=== PATIENT | female | born 1960 | race Caucasian/White ===

== ENCOUNTER 2016-08-08 | Emergency (ER) | payer BC ==
--- NOTE | 2016-08-08 12:47 | ED ---
Skin/Abscess/FB HPI - General Chief complaint: Skin/Abscess/Foreign Body Stated complaint: shingles Time Seen by Provider: 08/08/16 12:16 Source: patient, RN notes reviewed Mode of arrival: ambulatory Limitations: no limitations - History of Present Illness Initial comments: 55-year-old female presents to the emergency department with a chief complaint of shingles. Patient started to have a rash yesterday she went to urgent care and was seen. They diagnosed her was also started her on medications and sent her home. Patient states they told her that she follow-up the next day for reevaluation. Patient states she try to see her doctor. Unable to get her in so she came here to be reevaluated. Patient states she is having some pain. Patient has ptosis blistering along the bottom of the right cheek and into the mouth which is the same distribution it was yesterday just a few more blisters. Patient denies any eye pain patient as he pushes on the ice of the nose. Patient states just here for a recheck and she was worried that possibly she could have something more for the pain. Patient at this time is denying any other symptoms. Patient denies any recent fever, chills, shortness of breath, chest pain, back pain, abdominal pain, nausea vomiting, numbness or tingling, dysuria or hematuria, constipation or diarrhea, headaches or visual changes, or any other current symptoms. - Related Data Home Medications Medication Instructions Recorded Confirmed Cephalexin [Keflex] 500 mg PO Q8H 08/08/16 08/08/16 Nexnovdi-Azjzejeka-Yf Otic 4 drops BOTH EARS TID 08/08/16 08/08/16 [Cortisporin Otic Soln] valACYclovir HCL [Valtrex] 1,000 mg PO Q8H 08/08/16 08/08/16 Previous Rx's Medication Instructions Recorded Hydrocodone/Acetaminophen [Ghent 1 each PO Q6HR PRN #20 tab 08/08/16 5-325] Allergies Allergy/AdvReac Type Severity Reaction Status Date / Time aspirin Allergy Unknown Verified 08/08/16 12:36 Review of Systems ROS Statement: Those systems with pertinent positive or pertinent negative responses have been documented in the HPI. ROS Other: All systems not noted in ROS Statement are negative. Past Medical History Past Medical History: No Reported History Additional Past Medical History / Comment(s): SYNCOPE History of Any Multi-Drug Resistant Organisms: None Reported Past Surgical History: Ablation, Cholecystectomy, Hysterectomy, Tubal Ligation Additional Past Surgical History / Comment(s): ALEXIASURE Past Psychological History: No Psychological Hx Reported Smoking Status: Never smoker Past Alcohol Use History: Occasional Past Drug Use History: None Reported General Exam Limitations: no limitations General appearance: alert, in no apparent distress Head exam: Present: atraumatic, normocephalic, normal inspection ENT exam: Present: normal exam, mucous membranes moist Neck exam: Present: normal inspection. Absent: tenderness, meningismus, lymphadenopathy Respiratory exam: Present: normal lung sounds bilaterally. Absent: respiratory distress, wheezes, rales, rhonchi, stridor Cardiovascular Exam: Present: regular rate, normal rhythm, normal heart sounds. Absent: systolic murmur, diastolic murmur, rubs, gallop, clicks Neurological exam: Present: alert, oriented X3, CN II-XII intact. Absent: motor sensory deficit Psychiatric exam: Present: normal affect, normal mood Skin exam: Present: warm, dry, intact, rash (Patient appears to have a vesicular rash that involves the right ear and along the jawline into the right aspect of the mouth. There is blistering with some drainage.) Course Vital Signs 08/08/16 12:26 Temperature 98.1 F Pulse Rate 93 Respiratory 16 Rate Blood Pressure 118/72 O2 Sat by Pulse 96 Oximetry Medical Decision Making - Medical Decision Making 55-year-old female presents emergency department chief complaint of shingles. At this time we discussed that it is no mandibular distribution. There does not appear to be any eye involvement there is no blistering on the eye now tearing. We did discuss to be concerned and went to follow-up. We did discuss return parameters. We will start patient on some narcosis with pain control. We discussed all of her questions. She stated that she understood. This time she will be discharged home. Disposition Clinical Impression: Herpes zoster Disposition: HOME SELF-CARE Condition: Stable Instructions: Shingles (ED) Additional Instructions: Please use medication as discussed. Please follow up with family doctor if symptoms have not improved over the next two days. Please return to the emergency room if your symptoms increase or worsen or for any other concerns. Prescriptions: Hydrocodone/Acetaminophen [Ghent 5-325] 1 each PO Q6HR PRN #20 tab PRN Reason: Pain Referrals: Cesario Wang MD [Primary Care Provider] - 1-2 days Time of Disposition: 12:46
== END 2016-08-08 12:55 | disposition home or self-care (01) ==
CPT/HCPCS: 99283

== ENCOUNTER → 2018-05-03 | Outpatient (CLI) | payer BC ==
--- NOTE | 2018-05-06 13:27 | MM ---
Reason for exam: screening (asymptomatic). Last mammogram was performed 3 years and 1 month ago. History: Patient is postmenopausal. Physical Findings: A clinical breast exam by your physician is recommended on an annual basis and results should be correlated with mammographic findings. MG Screening Mammo w CAD Bilateral CC and MLO view(s) were taken. Prior study comparison: April 13, 2015, mammogram, performed at [facility]. January 14, 2014, mammogram, performed at [facility]. There are scattered fibroglandular densities. No significant changes when compared with prior studies. ASSESSMENT: Benign, BI-RAD 2 RECOMMENDATION: Routine screening mammogram of both breasts in 1 year.
--- NOTE | 2018-05-14 06:49 | BD ---
EXAMINATION TYPE: Axial Bone Density DATE OF EXAM: 05/03/2018 COMPARISON: NONE CLINICAL HISTORY: Height: 5 FT 1 IN Weight: 164 FRAX RISK QUESTIONS: History of Fracture in Adulthood: YES Secondary Osteoporosis: RISK FACTORS HISTORY OF: Active: YES Postmenopausal woman: TOTAL HYST AGE 54 MEDICATIONS: Additional Medications: NONE Additional History: EXAM MEASUREMENTS: Bone mineral densitometry was performed using the [employer] System. Bone mineral density as measured about the Lumbar spine is: ----- L1-L4(G/cm2): 1.099 T Score Values are as follows: ----- L2: -0.3 ----- L3: -0.4 ----- L4: -1.0 ----- L1-L4: -0.7 BASELINE Bone mineral density about the R hip (g/cm2): 0.859 Bone mineral density about the L hip (g/cm2): 0.850 T Score values are as follows: -----R Neck: -1.3 -----L Neck: -1.4 -----R Total: -0.7 -----L Total: -0.8 BASELINE IMPRESSION: Osteopenia (T Score between -2.5 and -1) at femoral neck level in both hips. There is slightly increased risk of fracture and the patient may be considered for treatment. Re-Screen 2-5 years. NOTE: T-SCORE=SD OF THE YOUNG ADULT MEAN.
== END | disposition home or self-care (01) ==
LOC: RADBDWWP 12:41
PROVIDERS: ATTEND Internal Medicine Geriatric Medicine
DX: Z12.31 Encounter for screening mammogram for malignant neoplasm of breast (principal); M85.852 Other specified disorders of bone density and structure, left thigh; M85.851 Other specified disorders of bone density and structure, right thigh
CPT/HCPCS: 77067; 77080

== ENCOUNTER → 2018-08-30 | Outpatient (CLI) | payer OTHER ==
--- NOTE | 2018-08-30 15:41 | XR ---
Right foot HISTORY: Plantar fasciitis, metatarsal pain 3 views of the right foot There is degenerative change at the first metatarsophalangeal joint. Alignment, bone mineralization i s maintained. No fracture or dislocation. There is a plantar calcaneal spur present. IMPRESSION: Plantar calcaneus spur, osteoarthritis.
== END ==
LOC: RADXRMAIN 10:14
PROVIDERS: ATTEND Internal Medicine Geriatric Medicine
DX: M77.31 Calcaneal spur, right foot (principal); M19.071 Primary osteoarthritis, right ankle and foot

== ENCOUNTER → 2019-04-02 | Outpatient (CLI) | payer OTHER ==
--- NOTE | 2019-04-02 10:11 | XR ---
EXAMINATION TYPE: XR thoracic spine complete DATE OF EXAM: 04/02/2019 COMPARISON: NONE HISTORY: Back pain Alignment is anatomic. There is no compression deformities. Slight curvature of the spine. Surgical clips in the gallbladder fossa. Hypertrophic and degenerative changes. IMPRESSION: 1. Moderate multilevel degenerative disc disease.
== END | disposition home or self-care (01) ==
LOC: RADXRMAIN 09:46
PROVIDERS: ATTEND Internal Medicine Geriatric Medicine
DX: M51.34 Other intervertebral disc degeneration, thoracic region (principal)
CPT/HCPCS: 72072

== ENCOUNTER → 2019-05-05 | Outpatient (CLI) | payer OTHER ==
--- NOTE | 2019-05-07 10:33 | MM ---
Reason for exam: screening (asymptomatic). Last mammogram was performed 1 year ago. History: Patient is postmenopausal. Physical Findings: A clinical breast exam by your physician is recommended on an annual basis and results should be correlated with mammographic findings. MG Screening Mammo w CAD Bilateral CC and MLO view(s) were taken. Prior study comparison: May 03, 2018, bilateral MG screening mammo w CAD. April 13, 2015, mammogram, performed at [facility]. There are scattered fibroglandular densities. No significant changes when compared with prior studies. ASSESSMENT: Benign, BI-RAD 2 RECOMMENDATION: Routine screening mammogram of both breasts in 1 year.
== END | disposition home or self-care (01) ==
LOC: RADMAMWWP 15:15
PROVIDERS: ATTEND Internal Medicine Geriatric Medicine
DX: Z12.31 Encounter for screening mammogram for malignant neoplasm of breast (principal)
CPT/HCPCS: 77067

== ENCOUNTER → 2021-03-09 | Outpatient (CLI) | payer OTHER ==
--- NOTE | 2021-03-14 13:43 | MM ---
Reason for exam: screening (asymptomatic). Last mammogram was performed 1 year and 10 months ago. History: Patient is postmenopausal. Family history of breast cancer in maternal aunt at age 40. Physical Findings: A clinical breast exam by your physician is recommended on an annual basis and results should be correlated with mammographic findings. MG 3D Screening Mammo W/Cad Bilateral CC and MLO view(s) were taken. Prior study comparison: May 05, 2019, bilateral MG screening mammo w CAD. May 03, 2018, bilateral MG screening mammo w CAD. There are scattered fibroglandular densities. There are benign appearing round calcifications bilaterally. There is chronic nodularity in the right outer breast. Asymmetric breast tissue left upper quadrant. There is no discrete abnormality. ASSESSMENT: Benign, BI-RAD 2 RECOMMENDATION: Routine screening mammogram of both breasts in 1 year.
== END | disposition home or self-care (01) ==
LOC: RADMAMWWP 15:49
PROVIDERS: ATTEND Internal Medicine Geriatric Medicine
DX: Z12.31 Encounter for screening mammogram for malignant neoplasm of breast (principal); Z78.0 Asymptomatic menopausal state; Z80.3 Family history of malignant neoplasm of breast
CPT/HCPCS: 77063; 77067

== ENCOUNTER 2023-06-07 03:10 | Observation (INO) | payer OTHER ==
[2023-06-07] MEDS ORDERED: METOCLOPRAMIDE 5 MG/ML 2 ML VIAL IVP STA (03:55)
--- NOTE | 2023-06-07 04:00 | ED ---
General Adult HPI - General Source: patient, family Mode of arrival: wheelchair Limitations: no limitations <Ravi Knowles - Last Filed: 06/07/23 08:08> <Andres Solis - Last Filed: 06/07/23 14:46> - General Chief complaint: Dizziness Stated complaint: Vomitting,dizziness Time Seen by Provider: 06/07/23 03:26 - History of Present Illness Initial comments: Dictation was produced using [employer] dictation software. please excuse any grammatical, word or spelling errors. Chief Complaint: 62-year-old female presents with vertigo History of Present Illness: Patient is a 62-year-old female presents emergency Department with vertigo. Patient states she had her initial episode yesterday lasted briefly and she woke up from bed while turning her head. Last for several minutes however resolved. This morning she woke up and went from laying to sitting and all of a sudden had intense vertigo that was described as severe. She did have some nausea and vomiting. States that it seems to be worse and she turns her head certain positions or goes from laying to sitting. Patient has any history of stroke. Denies any headache. No numb singly paresthesias to the arms or legs. The ROS documented in this emergency department record has been reviewed and confirmed by me. Those systems with pertinent positive or negative responses have been documented in the HPI. All other systems are other negative and/or noncontributory. (Ravi Knowles) - Related Data Home Medications Medication Instructions Recorded Confirmed No Known Home Medications 06/07/23 06/07/23 Allergies Allergy/AdvReac Type Severity Reaction Status Date / Time aspirin Allergy Unknown Verified 06/07/23 10:26 orange Allergy Rash/Hives Verified 06/07/23 10:26 tomato Allergy Rash/Hives Verified 06/07/23 10:26 Review of Systems ROS Other: All systems not noted in ROS Statement are negative. <Ravi Knowles - Last Filed: 06/07/23 08:08> ROS Other: All systems not noted in ROS Statement are negative. <Andres Solis - Last Filed: 06/07/23 14:46> ROS Statement: Those systems with pertinent positive or pertinent negative responses have been documented in the HPI. Past Medical History Past Medical History: No Reported History Additional Past Medical History / Comment(s): SYNCOPE History of Any Multi-Drug Resistant Organisms: None Reported Past Surgical History: Ablation, Cholecystectomy, Hysterectomy, Tubal Ligation Additional Past Surgical History / Comment(s): NOVASURE Past Psychological History: No Psychological Hx Reported Smoking Status: Never smoker Past Alcohol Use History: Occasional Past Drug Use History: None Reported <Ravi Knowles - Last Filed: 06/07/23 08:08> General Exam Limitations: no limitations <Ravi Knowles - Last Filed: 06/07/23 08:08> - General Exam Comments Initial Comments: PHYSICAL EXAM: General Impression: Alert and oriented x3, acute distress secondary to nausea HEENT: Normocephalic atraumatic, extra-ocular movements intact, pupils equal and reactive to light bilaterally, mucous membranes moist. Cardiovascular: Heart regular rate and rhythm Chest: Able to complete full sentences, no retractions, no tachypnea Abdomen: abdomen soft, non-tender, non-distended, no organomegaly Musculoskeletal: Pulses present and equal in all extremities, no peripheral edema Motor: no focal deficits noted Neurological: CN II-XII grossly intact, no focal motor or sensory deficits noted, persistent nystagmus, elicited with rightward gaze fast phase to the right Skin: Intact with no visualized rashes Psych: Normal affect and mood (Ravi Knowles) Course Vital Signs 06/07/23 06/07/23 06/07/23 03:13 04:17 05:12 Temperature 97.7 F Pulse Rate 97 89 82 Pulse Rate [ Sitting] Pulse Rate [ Standing] Pulse Rate [ Supine] Respiratory 18 20 18 Rate Blood Pressure 132/68 121/105 115/80 Blood Pressure [Sitting] Blood Pressure [Standing] Blood Pressure [Supine] O2 Sat by Pulse 99 100 100 Oximetry 06/07/23 06/07/23 06/07/23 06:24 07:30 08:59 Temperature 97.9 F Pulse Rate 77 73 76 Pulse Rate [ Sitting] Pulse Rate [ Standing] Pulse Rate [ Supine] Respiratory 18 20 18 Rate Blood Pressure 131/80 141/74 117/65 Blood Pressure [Sitting] Blood Pressure [Standing] Blood Pressure [Supine] O2 Sat by Pulse 99 98 97 Oximetry 06/07/23 06/07/23 09:25 13:09 Temperature Pulse Rate 84 Pulse Rate [ 74 Sitting] Pulse Rate [ 76 Standing] Pulse Rate [ 68 Supine] Respiratory 14 Rate Blood Pressure 111/75 Blood Pressure 108/74 [Sitting] Blood Pressure 108/75 [Standing] Blood Pressure 107/63 [Supine] O2 Sat by Pulse 98 Oximetry EKG Findings - EKG Comments: EKG Findings:: My EKG interpretation: Ventricular rate 70, sinus rhythm,. Interval 157, QRS 91, QTc 413. No CO prolongation, no QTC prolongation, no ST or T-wave changes noted. Overall, this EKG is unremarkable <Ravi Knowles - Last Filed: 06/07/23 08:08> Medical Decision Making - Lab Data Result diagrams: 06/07/23 04:15 06/07/23 04:15 <Ravi Knowles - Last Filed: 06/07/23 08:08> - Lab Data Result diagrams: 06/07/23 04:15 06/07/23 04:15 <Andres Solis - Last Filed: 06/07/23 14:46> - Medical Decision Making Was pt. sent in by a medical professional or institution (, PA, BRAKE REPAIRER RAILROAD, urgent care, hospital, or correction...) When possible be specific @ -No Did you speak to anyone other than the patient for history (EMS, parent, family, police, friend...)? What history was obtained from this source @ -No Did you review nursing and triage notes (agree or disagree)? Why? @ -I reviewed and agree with nursing and triage notes Were old charts reviewed (outside hosp., previous admission, EMS record, old EKG, old radiological studies, urgent care reports/EKG's, correction records)? Report findings @ -No old charts were reviewed Differential Diagnosis (chest pain, altered mental status, abdominal pain women, abdominal pain men, vaginal bleeding, musculoskeletal, weakness, fever, dyspnea, syncope, headache, dizziness, GI bleed, back pain, seizure, CVA, palpatations, mental health)? @ -Differential Dizziness: Benign paroxysmal positional Vertigo, Menieres disease, otitis media, acoustic neuroma, vertebrobasilar insufficiency, cerebellar stroke, encephalitis, hypovolemic, arrhythmia, coronary artery syndrome, anemia, this is not meant to be an all-inclusive list EKG interpreted by me (3pts min.). @ -as above X-rays interpreted by me (1pt min.). @ -chest X-ray shows no acute processes. CT interpreted by me (1pt min.). @ -Computed tomography scan of the brain is negative for acute bleed or obvious mass U/S interpreted by me (1pt. min.). @ -None done What testing was considered but not performed or refused? (CT, X-rays, U/S, labs)? Why? @ -None What meds were considered but not given or refused? Why? @ -None Did you discuss the management of the patient with other professionals (professionals i.e. , PA, BRAKE REPAIRER RAILROAD, lab, RT, psych nurse, social insurance administrator, deflash and wash operator, teacher, global safety officer, test case developer)? Give summary @ -No Was smoking cessation discussed for >3mins.? @ -No Was critical care preformed (if so, how long)? @ -No Were there social determinants of health that impacted care today? How? (Homelessness, low income, unemployed, alcoholism, drug addiction, transportation, low edu. Level, literacy, decrease access to med. care, custodial, rehab)? @ -No Was there de-escalation of care discussed even if they declined (Discuss DNR or withdrawal of care, Hospice)? DNR status @ -No What co-morbidities impacted this encounter? (DM, HTN, Smoking, COPD, CAD, Canc er, CVA, ARF, Chemo, Hep., AIDS, mental health diagnosis, sleep apnea, morbid obesity)? @ -None Was patient admitted / discharged? Hospital course, mention meds given and route, prescriptions, significant lab abnormalities, going to OR and other pertinent info. @ -62 Year-old female presents emergency department for severe vertigo. Vital signs are stable. EKG is unremarkable. Labs are negative. CT brain did not show any obvious cause of vertigo. Given the patient's degree of symptoms or suspicion for INSPECTOR TECHNICIAN cause for vertigo. CT angio head and neck pending. Patient is sent out to Dr. Solis at 8:00 AM Undiagnosed new problem with uncertain prognosis? @ -No Drug Therapy requiring intensive monitoring for toxicity (Heparin, Nitro, Insulin, Cardizem)? @ -No Were any procedures done? @ -No Diagnosis/symptom? Acute, or Chronic, or Acute on Chronic? Uncomplicated (without systemic symptoms) or Complicated (systemic symptoms)? @ -vertigo Side effects of treatment? @ -No Exacerbation, Progression, or Severe Exacerbation? @ -No Poses a threat to life or bodily function? How? (Chest pain, [place], [place], pneumonia, PE, COPD, DKA, ARF, appy, cholecystitis, CVA, Diverticulitis, Homicidal, Suicidal, threat to staff... and all critical care pts) @ -yes (Ravi Knowles) Patient is a 62-year-old female who presents emergency department for vertigo. Signed out to me by previous physician. New-onset vertigo pending results of CT imaging. Patient's workup so far is unremarkable. There is long delay in obtaining CT imaging as they were having issues with results crossing over and the radiologist during the films. When they were finally read it, and interpreted by myself, revealed no obvious acute intracranial process or injury. I did the patient. She is still having vertigo. Patient will be admitted to the hospital at this time. She was in agreement this plan. Neuro will be consulted. I spoke with the admitting team, Dr. Morrison of [facility] accept the admission. Diagnosis/symptom? @ -Vertigo of unknown etiology Acute, or Chronic, or Acute on Chronic? @ -Acute Uncomplicated (without systemic symptoms) or Complicated (systemic symptoms)? @ -Complicated Side effects of treatment? @ -none Exacerbation, Progression, or Severe Exacerbation] @ -no Poses a threat to life or bodily function? @ -Possibly, yes. (Andres Solis) - Lab Data Lab Results 06/07/23 06/07/23 06/07/23 Range/Units 04:15 04:15 04:15 WBC 12.1 H (3.8-10.6) k/uL RBC 4.17 (3.80-5.40) m/uL Hgb 13.3 (11.4-16.0) gm/dL Hct 39.7 (34.0-46.0) % MCV 95.0 (80.0-100.0) fL MCH 31.9 (25.0-35.0) pg MCHC 33.6 (31.0-37.0) g/dL RDW 12.2 (11.5-15.5) % Plt Count 301 (150-450) k/uL MPV 8.4 Neutrophils % 65 % Lymphocytes % 27 % Monocytes % 3 % Eosinophils % 2 % Basophils % 1 % Neutrophils # 7.8 H (1.3-7.7) k/uL Lymphocytes # 3.3 (1.0-4.8) k/uL Monocytes # 0.4 (0-1.0) k/uL Eosinophils # 0.3 (0-0.7) k/uL Basophils # 0.1 (0-0.2) k/uL PT 10.1 (10.0-12.5) sec INR 0.9 (<1.2) APTT 21.9 L (22.0-30.0) sec Sodium 140 (137-145) mmol/L Potassium 4.0 (3.5-5.1) mmol/L Chloride 104 (98-107) mmol/L Carbon Dioxide 22 (22-30) mmol/L Anion Gap 14 mmol/L BUN 20 H (7-17) mg/dL Creatinine 0.76 (0.52-1.04) mg/dL Est GFR (CKD-EPI)AfAm >90 (>60 ml/min/1.73 sqM) Est GFR (CKD-EPI)NonAf 86 (>60 ml/min/1.73 sqM) Glucose 127 H (74-99) mg/dL Calcium 9.6 (8.4-10.2) mg/dL Total Bilirubin 0.3 (0.2-1.3) mg/dL AST 29 (14-36) U/L ALT 29 (4-34) U/L Alkaline Phosphatase 119 (38-126) U/L Creatine Kinase 53 (30-135) U/L Troponin I (0.000-0.034) ng/mL Total Protein 6.8 (6.3-8.2) g/dL Albumin 4.2 (3.5-5.0) g/dL 06/07/23 Range/Units 04:15 WBC (3.8-10.6) k/uL RBC (3.80-5.40) m/uL Hgb (11.4-16.0) gm/dL Hct (34.0-46.0) % MCV (80.0-100.0) fL MCH (25.0-35.0) pg MCHC (31.0-37.0) g/dL RDW (11.5-15.5) % Plt Count (150-450) k/uL MPV Neutrophils % % Lymphocytes % % Monocytes % % Eosinophils % % Basophils % % Neutrophils # (1.3-7.7) k/uL Lymphocytes # (1.0-4.8) k/uL Monocytes # (0-1.0) k/uL Eosinophils # (0-0.7) k/uL Basophils # (0-0.2) k/uL PT (10.0-12.5) sec INR (<1.2) APTT (22.0-30.0) sec Sodium (137-145) mmol/L Potassium (3.5-5.1) mmol/L Chloride (98-107) mmol/L Carbon Dioxide (22-30) mmol/L Anion Gap mmol/L BUN (7-17) mg/dL Creatinine (0.52-1.04) mg/dL Est GFR (CKD-EPI)AfAm (>60 ml/min/1.73 sqM) Est GFR (CKD-EPI)NonAf (>60 ml/min/1.73 sqM) Glucose (74-99) mg/dL Calcium (8.4-10.2) mg/dL Total Bilirubin (0.2-1.3) mg/dL AST (14-36) U/L ALT (4-34) U/L Alkaline Phosphatase (38-126) U/L Creatine Kinase (30-135) U/L Troponin I <0.012 (0.000-0.034) ng/mL Total Protein (6.3-8.2) g/dL Albumin (3.5-5.0) g/dL Disposition <Ravi Knowles - Last Filed: 06/07/23 08:08> Time of Disposition: 11:15 <Andres Solis - Last Filed: 06/07/23 14:46> Clinical Impression: Vertigo Disposition: ADMITTED IP TO THIS HOSP Condition: Stable
[2023-06-07 05:49] LABS: Basophils # (A) 0.1 k/uL (0-0.2); Basophils % (A) 1 %; Eosinophils # (A) 0.3 k/uL (0-0.7); Eosinophils % (A) 2 %; HCT 39.7 % (34.0-46.0); HGB 13.3 gm/dL (11.4-16.0); Lymphocytes # (A) 3.3 k/uL (1.0-4.8); Lymphocytes % (A) 27 %; MCH 31.9 pg (25.0-35.0); MCHC 33.6 g/dL (31.0-37.0); Mean Platelet Volume 8.4; Monocytes # (A) 0.4 k/uL (0-1.0); Monocytes % (A) 3 %; Neutrophils # (A) 7.8 k/uL (1.3-7.7); Neutrophils % (A) 65 %; Platelet Count 301 k/uL (150-450); RBC 4.17 m/uL (3.80-5.40); RDW 12.2 % (11.5-15.5); WBC 12.1 k/uL (3.8-10.6)
[2023-06-07 05:59] LABS: ALT 29 U/L (4-34); AST 29 U/L (14-36); African American GFR (CKD) >90 (>60 ml/min/1.73 sqM); Albumin 4.2 g/dL (3.5-5.0); Alkaline Phosphatase 119 U/L (38-126); Anion Gap 14 mmol/L; Blood Urea Nitrogen 20 mg/dL (7-17); Calcium 9.6 mg/dL (8.4-10.2); Carbon Dioxide 22 mmol/L (22-30); Chloride 104 mmol/L (98-107); Creatine Kinase 53 U/L (30-135); Glucose 127 mg/dL (74-99); Non-African American GFR(CKD) 86 (>60 ml/min/1.73 sqM); Sodium 140 mmol/L (137-145); Total Bilirubin 0.3 mg/dL (0.2-1.3); Total Protein 6.8 g/dL (6.3-8.2)
[2023-06-07 06:14] LABS: INR 0.9 (<1.2); Partial Thromboplastin Time 21.9 sec (22.0-30.0); Prothrombin Time 10.1 sec (10.0-12.5)
--- NOTE | 2023-06-07 06:56 | XR ---
EXAM: XR Chest, 2 Views CLINICAL HISTORY: ITS.REASON XR Reason: altered mental status TECHNIQUE: Frontal and lateral views of the chest. COMPARISON: No relevant prior studies available. FINDINGS: Lungs: Unremarkable. No consolidation. Pleural space: Unremarkable. No pneumothorax. Heart: Unremarkable. No cardiomegaly. Mediastinum: Unremarkable. Bones/joints: Unremarkable. IMPRESSION: No evidence of acute cardiopulmonary disease.
[2023-06-07 07:41] VITALS: TEMP 97.9
[2023-06-07] MEDS ORDERED: MECLIZINE 12.5 MG TAB PO STA (09:07)
--- NOTE | 2023-06-07 09:54 | CT ---
EXAMINATION TYPE: CT brain wo con CT DLP: 12/24/2012 mGycm, Automated exposure control for dose reduction was used. DATE OF EXAM: 06/07/2023 5:37 AM COMPARISON: 12/24/2012. CLINICAL INDICATION:Female, 62 years old with history of Neuro deficit, acute, stroke suspected, TECHNIQUE: Brain: Axial CT images of the brain were obtained with coronal and sagittal reformats created and rev iewed. Contrast used: None. Oral contrast used: None. FINDINGS: Brain: Extra-axial spaces: No abnormal extra-axial fluid collections. Ventricular system: Within normal limits Cerebral parenchyma: No acute intraparenchymal hemorrhage or mass effect. The burton-white junction is well differentiated. Cerebellum: Unremarkable. Mass effect: No evidence of midline shift. Intracranial vasculature: unremarkable Soft tissues: Normal. Calvarium/osseous structures: No depressed skull fracture. Paranasal sinuses and mastoid air cells: Mild scattered paranasal sinus disease. Visualized orbits: Orbital contents are intact. IMPRESSION: No acute intracranial process.
--- NOTE | 2023-06-07 10:41 | CT ---
EXAMINATION TYPE: CT angio head neck CT DLP: 1202 mGycm, Automated exposure control for dose reduction was used. DATE OF EXAM: 06/07/2023 5:45 AM COMPARISON: None. CLINICAL INDICATION:Female, 62 years old with history of Neuro deficit, acute, stroke suspected; TECHNIQUE: Axially acquired helical CT angiogram of the head and neck was obtained with contrast. Axi al images are supplemented with 3D reconstructions which [facility] NASCET criteria used. Contrast used: None. Oral contrast used: None. FINDINGS: CTA HEAD: No evidence of acute intracranial hemorrhage, mass effect, or midline shift. The ventricles, sulci, a nd cisterns are unremarkable. The visualized portions of the internal carotid arteries, middle cerebral arteries, anterior cerebral arteries, and posterior cerebral arteries are patent. The basilar and vertebral arteries are patent. CTA NECK: Right Carotid System: The common carotid artery and external carotid artery are patent. The carotid bifurcation demonstrate s no evidence of hemodynamically significant stenosis. The remaining portions of the internal carotid artery demonstrate normal size without significant narrowing. Left Carotid System: The common carotid artery and external carotid artery are patent. The carotid bifurcation demonstrate s no evidence of hemodynamically significant stenosis. The remaining portions of the internal carotid artery demonstrate normal size without significant narrowing. Vertebral arteries are patent without evidence hemodynamically significant stenosis. There is a three-vessel aortic arch. The origins of the great vessels are patent. No evidence of hemo dynamically significant stenosis. Upper thorax: Mild centrilobular emphysema changes. IMPRESSION: 1. No evidence of dissection of the cervical internal carotid arteries or vertebral arteries or any e vidence of significant stenosis at the carotid bifurcations. 2. No evidence of intracranial high-grade stenosis or intracranial aneurysm.
[2023-06-07] MEDS ORDERED: NALOXONE 0.4 MG/ML 1 ML VIAL IV PRN (11:40)
[2023-06-07] MEDS ORDERED: ONDANSETRON 4 MG/2 ML VIAL IVP PRN (11:40)
[2023-06-07] MEDS ORDERED: MECLIZINE 25 MG TAB PO PRN (11:43)
[2023-06-07] MEDS ORDERED: SODIUM CHLORIDE 0.9% 1,000 ML IV SCH (11:45)
--- NOTE | 2023-06-07 12:38 | P.HPIM ---
History of Present Illness H&P Date: 06/07/23 History of present illness; patient is 62-year-old lady with no significant past medical history of present the ER because of dizziness. Patient stated that she woke up yesterday morning and started noticing that she was dizzy, dizziness was worsened by movement of her hands. Patient was also very unsteady on her gait. The dizziness lasted for a few hours and it resolved. This morning patient once again woke up and started noticing that she was dizzy once again. There was no evidence of slurred speech. No complain of Weakness of any extremity. Patient was complaining of nausea but no vomiting. Denies any chest pain or shortness of breath. Because of persistent dizziness, patient came to the ER Initial lab work done in the ER showed WBC 12.1, hemoglobin 14.2, platelet count 301, sodium 140, potassium 4, BUN 20, creatinine 0.76, glucose 127 CT head negative for any acute cranial process CTA head and neck showed no evidence of dissection of the cervical internal carotid arteries or vertebral arteries or any evidence of significant stenosis in the carotid bifurcations Chest x-ray done in the ER showed no acute cardiopulmonary disease Patient admitted to medicine service REVIEW OF SYSTEMS: CONSTITUTIONAL: No fever, no malaise, no fatigue. HEENT: No recent visual problems or hearing problems. Denied any sore throat. CARDIOVASCULAR: No chest pain, orthopnea, PND, no palpitations, no syncope. PULMONARY: No shortness of breath, no cough, no hemoptysis. GASTROINTESTINAL: No diarrhea, no nausea, no vomiting, no abdominal pain. NEUROLOGICAL: As mentioned above HEMATOLOGICAL: Denies any bleeding or petechiae. GENITOURINARY: Denies any burning micturition, frequency, or urgency. MUSCULOSKELETAL/RHEUMATOLOGICAL: Denies any joint pain, swelling, or any muscle pain. ENDOCRINE: Denies any polyuria or polydipsia. The rest of the 14-point review of systems is negative. PHYSICAL EXAMINATION: GENERAL: The patient is alert and oriented x3, not in any acute distress. Well developed, well nourished. HEENT: Pupils are round and equally reacting to light. EOMI. No scleral icterus. No conjunctival pallor. Normocephalic, atraumatic. No pharyngeal erythema. No thyromegaly. CARDIOVASCULAR: S1 and S2 present. No murmurs, rubs, or gallops. PULMONARY: Chest is clear to auscultation, no wheezing or crackles. ABDOMEN: Soft, nontender, nondistended, normoactive bowel sounds. No palpable organomegaly. MUSCULOSKELETAL: No joint swelling or deformity. EXTREMITIES: No cyanosis, clubbing, or pedal edema. NEUROLOGICAL: Gross neurological examination did not reveal any focal deficits. SKIN: No rashes. Assessment and plan Benign positional vertigo Monitor vital signs Monitor CBC Monitor CMP Continue neuro checks Fall precautions Continue antiemetics Continue Antivert Neurology consulted Labs and medication were reviewed.. Continue same treatment. Continue with symptomatic treatment. Resume home medication. Monitor labs and vitals. DVT and GI prophylaxis. Further recommendations as per clinical course of the patient Dictation was produced using [employer] dictation software. please excuse any grammatical, word or spelling errors. Past Medical History Past Medical History: No Reported History Additional Past Medical History / Comment(s): SYNCOPE History of Any Multi-Drug Resistant Organisms: None Reported Past Surgical History: Ablation, Cholecystectomy, Hysterectomy, Tubal Ligation Additional Past Surgical History / Comment(s): ETHAN Past Psychological History: No Psychological Hx Reported Smoking Status: Never smoker Past Alcohol Use History: Occasional Past Drug Use History: None Reported Medications and Allergies Home Medications Medication Instructions Recorded Confirmed Type No Known Home Medications 06/07/23 06/07/23 History Allergies Allergy/AdvReac Type Severity Reaction Status Date / Time aspirin Allergy Unknown Verified 06/07/23 10:26 orange Allergy Rash/Hives Verified 06/07/23 10:26 tomato Allergy Rash/Hives Verified 06/07/23 10:26 Physical Exam Vitals: Vital Signs Temp Pulse Pulse Pulse Pulse Resp BP 06/07/23 09:25 74 76 68 06/07/23 08:59 76 18 117/65 06/07/23 07:30 97.9 F 73 20 141/74 06/07/23 06:24 77 18 131/80 06/07/23 05:12 82 18 115/80 06/07/23 04:17 89 20 121/105 06/07/23 03:13 97.7 F 97 18 132/68 BP BP BP Pulse Ox 06/07/23 09:25 108/74 108/75 107/63 06/07/23 08:59 97 06/07/23 07:30 98 06/07/23 06:24 99 06/07/23 05:12 100 06/07/23 04:17 100 06/07/23 03:13 99 Intake and Output 06/06/23 06/07/23 06/07/23 22:59 06:59 14:59 Other: Weight 68.039 kg Results CBC & Chem 7: 06/07/23 04:15 06/07/23 04:15 Labs: Abnormal Lab Results - Last 24 Hours (Table) 06/07/23 06/07/23 06/07/23 Range/Units 04:15 04:15 04:15 WBC 12.1 H (3.8-10.6) k/uL Neutrophils # 7.8 H (1.3-7.7) k/uL APTT 21.9 L (22.0-30.0) sec BUN 20 H (7-17) mg/dL Glucose 127 H (74-99) mg/dL
[2023-06-07 13:24] LABS: Appearance,Urine Clear (Clear); Bilirubin,Urine Negative (Negative); Blood,Urine Negative (Negative); Color,Urine Colorless; Glucose,Urine (UA) Negative (Negative); Ketones,Urine Negative (Negative); Leukocyte Esterase,Urine Negative (Negative); Nitrite,Urine Negative (Negative); Protein,Urine Negative (Negative); Specific Gravity,Urine 1.022 (1.001-1.035); Urobilinogen,Urine <2.0 mg/dL (<2.0)
[2023-06-07] MEDS ORDERED: MECLIZINE 25 MG TAB PO STA (20:20)
[2023-06-07 20:46] VITALS: BP 119/66; PULSE 85; RESP 16
--- NOTE | 2023-06-08 09:28 | P.DS ---
Providers Date of admission: 06/07/23 11:41 Expected date of discharge: 06/08/23 Attending physician: Paulie Morrison MD Consults: 06/07/23 11:40 Consult Physician Routine Consulting Provider: Zena Brandon Consult Reason/Comments: intractable vertigo Do you want consulting provider notified?: Yes Primary care physician: [place] Hospital Course: Discharge diagnoses; Benign positional vertigo Hospital course; patient is 62-year-old lady with no significant past medical history of present the ER because of dizziness. Patient stated that she woke up yesterday morning and started noticing that she was dizzy, dizziness was worsened by movement of her hands. Patient was also very unsteady on her gait. The dizziness lasted for a few hours and it resolved. This morning patient once again woke up and started noticing that she was dizzy once again. There was no evidence of slurred speech. No complain of Weakness of any extremity. Patient was complaining of nausea but no vomiting. Denies any chest pain or shortness of breath. Because of persistent dizziness, patient came to the ER Initial lab work done in the ER showed WBC 12.1, hemoglobin 14.2, platelet count 301, sodium 140, potassium 4, BUN 20, creatinine 0.76, glucose 127 CT head negative for any acute cranial process CTA head and neck showed no evidence of dissection of the cervical internal carotid arteries or vertebral arteries or any evidence of significant stenosis in the carotid bifurcations Chest x-ray done in the ER showed no acute cardiopulmonary disease Patient admitted to medicine service Patient was started on Antivert, patient was feeling much better. Neurology evaluated the patient, cleared the patient for discharge. Being discharged in stable condition PHYSICAL EXAMINATION: GENERAL: The patient is alert and oriented x3, not in any acute distress. Well developed, well nourished. HEENT: Pupils are round and equally reacting to light. EOMI. No scleral icterus. No conjunctival pallor. Normocephalic, atraumatic. No pharyngeal erythema. No thyromegaly. CARDIOVASCULAR: S1 and S2 present. No murmurs, rubs, or gallops. PULMONARY: Chest is clear to auscultation, no wheezing or crackles. ABDOMEN: Soft, nontender, nondistended, normoactive bowel sounds. No palpable organomegaly. MUSCULOSKELETAL: No joint swelling or deformity. EXTREMITIES: No cyanosis, clubbing, or pedal edema. NEUROLOGICAL: Gross neurological examination did not reveal any focal deficits. SKIN: No rashes. Dictation was produced using [employer] dictation software. please excuse any grammatical, word or spelling errors. Patient Condition at Discharge: Stable Plan - Discharge Summary New Discharge Prescriptions: New Meclizine [Antivert] 25 mg PO TID PRN #20 tab PRN Reason: Vertigo Discharge Medication List Meclizine [Antivert] 25 mg PO TID PRN #20 tab 06/07/23 [Rx] Follow up Appointment(s)/Referral(s): Dimitri Fong MD [REFERRING] - As Needed (Discuss with primary care provider if neurology evaluation is needed and if referral will be needed per your insurance) Clifton Wilson MD [Primary Care Provider] - 1-2 days Activity/Diet/Wound Care/Special Instructions: Activity is limited until follow-up Follow-up with primary care provider this week Follow-up with neurology outpatient after discussing with her primary care provider Continue taking meclizine (Antivert) 3 times daily as needed if having continued dizziness and vertigo When getting up and position changes sit up slowly and at the side of the bed or chair for 1-2 minutes prior to getting up Discussed with primary care provider if referral is needed to neurology Discharge Disposition: HOME SELF-CARE
--- NOTE | 2023-06-08 14:42 | P.CNNES ---
History of Present Illness Consult date: 06/07/23 Review of Systems Constitutional: Reports chills (Cold), Denies fever, Denies sweats Eyes: denies blurred vision, denies bulging eye, denies diplopia, denies loss of vision Ears: deny: decreased hearing, ear discharge Ears, nose, mouth and throat: Denies headache, Denies sore throat Cardiovascular: Denies chest pain, Denies shortness of breath Respiratory: Reports excessive sputum, Denies cough Gastrointestinal: Reports nausea, Reports vomiting, Denies abdominal pain, Denies diarrhea Genitourinary: Denies dysuria, Denies hematuria Musculoskeletal: Denies low back pain, Denies myalgias, Denies neck pain Integumentary: Denies pruritus, Denies rash Neurological: Reports as per HPI Psychiatric: Denies anxiety, Denies depression Endocrine: Denies fatigue, Denies weight change Hematologic/Lymphatic: Denies easy bleeding, Denies easy bruising Past Medical History Past Medical History: No Reported History Additional Past Medical History / Comment(s): SYNCOPE History of Any Multi-Drug Resistant Organisms: None Reported Past Surgical History: Ablation, Cholecystectomy, Hysterectomy, Tubal Ligation Additional Past Surgical History / Comment(s): NOVASURE Past Psychological History: No Psychological Hx Reported Smoking Status: Never smoker Past Alcohol Use History: Occasional Past Drug Use History: None Reported Medications and Allergies Home Medications Medication Instructions Recorded Confirmed Type No Known Home Medications 06/07/23 06/07/23 History Allergies Allergy/AdvReac Type Severity Reaction Status Date / Time aspirin Allergy Unknown Verified 06/07/23 10:26 orange Allergy Rash/Hives Verified 06/07/23 10:26 tomato Allergy Rash/Hives Verified 06/07/23 10:26 Physical Examination - Vital Signs Vital Signs: Vital Signs Temp Pulse Pulse Pulse Pulse Resp BP 06/07/23 13:09 84 14 111/75 06/07/23 09:25 74 76 68 06/07/23 08:59 76 18 117/65 06/07/23 07:30 97.9 F 73 20 141/74 06/07/23 06:24 77 18 131/80 06/07/23 05:12 82 18 115/80 06/07/23 04:17 89 20 121/105 06/07/23 03:13 97.7 F 97 18 132/68 BP BP BP Pulse Ox 06/07/23 13:09 98 06/07/23 09:25 108/74 108/75 107/63 06/07/23 08:59 97 06/07/23 07:30 98 06/07/23 06:24 99 06/07/23 05:12 100 06/07/23 04:17 100 06/07/23 03:13 99 Intake and Output 06/07/23 06/07/23 06/07/23 06:59 14:59 22:59 Other: Weight 68.039 kg Results - Laboratory Findings CBC and BMP: 06/07/23 04:15 06/07/23 04:15 Abnormal Lab Findings: Abnormal Labs 06/07/23 06/07/23 06/07/23 04:15 04:15 04:15 WBC 12.1 H Neutrophils # 7.8 H APTT 21.9 L BUN 20 H Glucose 127 H
== END 2023-06-07 21:04 | disposition home or self-care (01) ==
LOC: EC 03:10 → INTOOBSV 11:41 → 5NMEDONC 11:41 → UNDODISIN 21:04
PROVIDERS: ADMIT Internal Medicine; ATTEND Internal Medicine
DX: H81.10 Benign paroxysmal vertigo, unspecified ear (principal); Z88.6 Allergy status to analgesic agent; Z91.018 Allergy to other foods; Z90.49 Acquired absence of other specified parts of digestive tract; Z90.710 Acquired absence of both cervix and uterus; Z98.51 Tubal ligation status; Z98.890 Other specified postprocedural states
CPT/HCPCS: 96374; 99285; 36415; 93005; 80053; 82550; 84484; 85025; 85610; 85730; 81003; 71046; 70496; 70450; 70498; G0378; J2765; Q9967